=== PATIENT | female | born 1955 | race Caucasian/White ===

== ENCOUNTER 2018-01-06 10:23 | Emergency (ER) | payer BC ==
--- NOTE | 2018-01-06 11:29 | RAD ---
Indication: Left ankle injury. 3 views of left ankle demonstrate soft tissue swelling laterally. No definite fracture is identified. Ankle mortise is intact. IMPRESSION: Soft tissue swelling laterally without fracture.
--- NOTE | 2018-01-06 11:30 | RAD ---
Indication: Left lower leg injury. 2 views of left lower leg demonstrates no fracture. No other bone or joint abnormalities identified. IMPRESSION: No fracture of the left lower leg.
--- NOTE | 2018-01-06 11:47 | ED ---
Chau Qureshi Julia, scribed for Mario Acuña MD on 01/06/18 at 1056 . Lower Extremity - HPI Summary HPI Summary: This patient is a 62 year old F [facility] [place] yesterday morning at 11:00. She states she twisted her ankle and has gradually worsening L ankle pain worst over the medical malleolus. Patient denies injury elsewhere or previous injury to this ankle. The patient rates the pain 7/10 in severity. Symptoms aggravated by weight bearing. - History of Current Complaint Chief Complaint: EDExtremityLower Stated Complaint: LEFT ANKLE INJURY FALL Time Seen by Provider: 01/06/18 10:48 Hx Obtained From: Patient Mechanism Of Injury: Fall From A Standing Position, Twisted Onset of Pain: Immediate - gradually worsening Onset/Duration: Days Pain Intensity: 7 Pain Scale Used: 0-10 Numeric Timing: Constant Location: Other - L medial malleolus Able to Bear Weight: Yes - painful - Allergies/Home Medications Allergies/Adverse Reactions: Allergies Allergy/AdvReac Type Severity Reaction Status Date / Time No Known Allergies Allergy Verified 09/20/17 17:39 PMH/Surg Hx/FS Hx/Imm Hx Previously Healthy: Yes - Patient denies medical history. Cardiovascular History: Denies: Hx Congestive Heart Failure Musculoskeletal History: Denies: Hx of Fracture(s) - Cancer History Hx Chemotherapy: No Hx Radiation Therapy: No Infectious Disease History: No Infectious Disease History: Denies: Traveled Outside the [place] in Last 30 Days - Family History Known Family History: Negative: Cardiac Disease, Diabetes - Social History Alcohol Use: Occasionally Hx Substance Use: No Substance Use Type: Reports: None Hx Tobacco Use: Yes Smoking Status (MU): Former Smoker Review of Systems Constitutional: Negative - other injury Positive: Myalgia - L ankle All Other Systems Reviewed And Are Negative: Yes Physical Exam Triage Information Reviewed: Yes Vital Signs On Initial Exam: Initial Vitals Temp Pulse Resp BP Pulse Ox 98.1 F 64 17 139/78 99 01/06/18 10:30 01/06/18 10:30 01/06/18 10:30 01/06/18 10:30 01/06/18 10:30 Vital Signs Reviewed: Yes Appearance: Positive: Well-Appearing, No Pain Distress Skin: Positive: Warm, Skin Color Reflects Adequate Perfusion Head/Face: Positive: Normal Head/Face Inspection ENT: Positive: Normal ENT inspection Neck: Positive: Nontender Respiratory/Lung Sounds: Positive: Clear to Auscultation, Breath Sounds Present Cardiovascular: Positive: RRR. Negative: Murmur Abdomen Description: Positive: Nontender Musculoskeletal: Positive: Other - Left leg: tender over the medial malleolus with mild STS. No tenderness over base of 5th metatarsal. No tenderness over the proximal fibular head. No tenderness over the lateral malleolus. She has good DP and PT pulses. Neurological: Positive: Sensory/Motor Intact, Alert, Oriented to Person Place, Time, CN Intact II-III Psychiatric: Positive: Normal - Brittani Coma Scale Best Eye Response: 4 - Spontaneous Best Motor Response: 6 - Obeys Commands Best Verbal Response: 5 - Oriented Coma Scale Total: 15 Diagnostics - Vital Signs Vital Signs Temp Pulse Resp BP Pulse Ox 01/06/18 10:30 98.1 F 64 17 139/78 99 - Laboratory Lab Statement: Any lab studies that have been ordered have been reviewed, and results considered in the medical decision making process. - Radiology L ankle Radiology Interpretation Completed By: Radiologist - Soft tissue swelling laterally without fracture. ED Physician has reviewed this report. LLE XR Radiology Interpretation Completed By: Radiologist - No fracture of the left lower leg. ED Physician. Lower Extremity Course/Dx - Course Course Of Treatment: Patient presents with L ankle pain s/p fall worse over medial malleolus. A L ankle XR is negative for fracture. A L lower leg XR is negative for fracture. - Diagnoses Provider Diagnoses: Ankle sprain, Hypertension Discharge - Discharge Plan Condition: Good Disposition: HOME Patient Education Materials: Ankle Sprain (ED), Hypertension (ED) Referrals: Cierra Ashby MD [Primary Care Provider] - 2 Days The documentation as recorded by the Chau garcia Julia accurately reflects the service I personally performed and the decisions made by Arianne bird Walter, MD.
[2018-01-06 12:04] VITALS: BP 126/68
== END 2018-01-06 12:03 | disposition home or self-care (01) ==
LOC: ED 10:23
DX: S93.402A Sprain of unspecified ligament of left ankle, initial encounter (principal); W19.XXXA Unspecified fall, initial encounter; Y93.29 Activity, other involving ice and snow; Y92.89 Other specified places as the place of occurrence of the external cause; Z87.891 Personal history of nicotine dependence
CPT/HCPCS: 99282